=== PATIENT | female | born 1970 | race African-American/Black ===

== ENCOUNTER 2024-09-19 09:53 | Emergency (ER) | payer MEDICAID ==
[~2024-09-19] VITALS: Ht 157.5 cm; Wt 65.0 kg
[2024-09-19 09:59] VITALS: O2SAT 100
[2024-09-19 11:16] LABS: BASOPHILS % 0.6 % (0.0-2.0); DIFFERENTIAL COMMENT 0; EOSINOPHILS % 0.7 % (0.0-5.0); HEMATOCRIT. 38.9 % (36.0-48.0); HEMOGLOBIN. 12.8 g/dL (12.0-16.0); LYMPHOCYTES % 29.2 % (20.0-50.0); MEAN CORPUSCULAR HEMOGLOBIN 30.8 pg (28.0-32.0); MEAN CORPUSCULAR HGB CONC 32.9 g/dL (31.0-37.0); MEAN CORPUSCULAR VOLUME 93.5 fL (81.0-99.0); MEAN PLATELET VOLUME 8.9 fl (7.4-10.4); MONOCYTES % 9.4 % (2.0-8.0); NEUTROPHILS % 60.1 % (40.0-76.0); PLATELET 241 x1000/uL (130-400); RED BLOOD CELL COUNT 4.16 mill/uL (4.2-5.4); RED CELL DISTRIBUTION WIDTH 14.5 % (11.6-14.6)
[2024-09-19 11:32] LABS: CHLORIDE 105 mEq/L (98-107); POTASSIUM 3.5 mEq/L (3.5-5.1); SODIUM 138 mEq/L (136-145)
[2024-09-19 11:33] LABS: CALCIUM 10.2 mg/dL (8.7-10.4); CARBON DIOXIDE 24 mEq/L (21-32)
[2024-09-19 11:38] LABS: CREATININE 0.8 mg/dL (0.6-1.0); GLUCOSE 94 mg/dL (70-105); UREA NITROGEN BLOOD 8 mg/dL (9-23)
[2024-09-19 11:56] LABS: TROPONIN I HIGH SENSITIVITY < 4 ng/L (3.0-34)
[2024-09-19] MEDS: KETOROLAC 30MG/ML VIAL IM ONE (12:24)
[2024-09-19] MEDS: CYCLOBENZAPRINE 10MG TABLET PO ONE (12:29)
[2024-09-19] MEDS ORDERED: IBUP-2029 MT (12:32)
[2024-09-19] MEDS ORDERED: CYCL10TA21 MT (12:32)
[2024-09-19 12:45] VITALS: BP 135/89; PULSE 85; RESP 13; TEMP 37.00296; O2SAT 95
== END 2024-09-19 12:51 | disposition home or self-care (01) ==
LOC: ER 10:09
DX: R07.89 Other chest pain (principal); M25.511 Pain in right shoulder; I10 Essential (primary) hypertension
CPT/HCPCS: 36415; 71045; 80048; 84484; 85025; 93005; 99285

== ENCOUNTER 2025-09-16 16:07 | Emergency (ER) | payer MEDICAID ==
[~2025-09-16] VITALS: Ht 165.1 cm; Wt 75.0 kg
[~2025-09-16 16:07] MED LIST: CYCL10TA21 MT; IBUP-1455 MT
[2025-09-16 16:08] VITALS: O2SAT 100
[2025-09-16 20:03] VITALS: BP 166/86; PULSE 65; RESP 18; TEMP 36.8; O2SAT 100
== END 2025-09-16 20:03 | disposition home or self-care (01) ==
LOC: ER 16:07
DX: M25.562 Pain in left knee (principal); I10 Essential (primary) hypertension; Z90.710 Acquired absence of both cervix and uterus
CPT/HCPCS: 99283; 73562; A6449

== ENCOUNTER 2025-11-02 16:54 | Emergency (ER) | payer MEDICAID ==
[~2025-11-02] VITALS: Ht 157.5 cm; Wt 70.0 kg
[2025-11-02 17:10] VITALS: O2SAT 100
[2025-11-02 17:29] VITALS: BP_DIAS 85; O2SAT 99
[2025-11-02 18:23] LABS: BASOPHILS % 0.9 % (0.0-2.0); EOSINOPHILS % 0.9 % (0.0-5.0); HEMATOCRIT. 40.5 % (36.0-48.0); HEMOGLOBIN. 13.5 g/dL (12.0-16.0); LYMPHOCYTES % 33.2 % (20.0-50.0); MEAN PLATELET VOLUME 9.7 fl (7.4-10.4); MONOCYTES % 10.8 % (2.0-8.0); NEUTROPHILS % 54.2 % (40.0-76.0); PLATELET 247 x1000/uL (130-400); RED BLOOD CELL COUNT 4.36 mill/uL (4.2-5.4); RED CELL DISTRIBUTION WIDTH 14.0 % (11.6-14.6)
[2025-11-02 18:26] LABS: CLARITY URINE CLEAR (CLEAR); COLOR URINE YELLOW (YELLOW); GLUCOSE URINE NEGATIVE (NEGATIVE); KETONES URINE NEGATIVE (NEGATIVE); LEUKOCYTE ESTERASE URINE NEGATIVE (NEGATIVE); NITRITE URINE NEGATIVE (NEGATIVE); OCCULT BLOOD URINE NEGATIVE (NEGATIVE); PH URINE 8.0 (4.5-8.0); PROTEIN URINE NEGATIVE (NEGATIVE); SPECIFIC GRAVITY URINE 1.007 (1.005-1.030); UROBILINOGEN URINE 0.2 E.U./dL (0.2-1.0)
[2025-11-02 18:37] LABS: CREATININE 0.8 mg/dL (0.6-1.0)
[2025-11-02 18:38] LABS: PROTEIN TOTAL 7.8 g/dL (6.0-8.3); UREA NITROGEN BLOOD 8 mg/dL (9-23)
[2025-11-02 18:39] LABS: ASPARTATE AMINOTRANSFERASE 19 IU/L (<34); TROPONIN I HIGH SENSITIVITY < 4 ng/L (3.0-34)
[2025-11-02 18:40] LABS: BILIRUBIN DIRECT < 0.1 mg/dL (<=3.0); BILIRUBIN TOTAL 0.5 mg/dL (0.1-1.0)
[2025-11-02 18:43] LABS: INR 1.0
[2025-11-02] MEDS: MECLIZINE 25MG TABLET PO ONE (18:56)
[2025-11-02] MEDS: POTASSIUM CHLORIDE 20MEQ TABLET SR PO ONE (19:07)
[2025-11-02] MEDS ORDERED: MECL-299 MT (20:06)
[2025-11-02 20:19] VITALS: BP_SYST 119; PULSE 84; RESP 16; TEMP 36.3
== END 2025-11-02 20:21 | disposition home or self-care (01) ==
LOC: ER 16:54
DX: R42 Dizziness and giddiness (principal); E87.6 Hypokalemia; R06.02 Shortness of breath; I10 Essential (primary) hypertension; Z90.710 Acquired absence of both cervix and uterus
CPT/HCPCS: 99285; 71045; 80076; 80048; 81003; 81025; 83880; 85025; 85610; 84484; 36415; 93005; J8597